=== PATIENT | male | born 1965 | race Caucasian/White ===

== ENCOUNTER → 2023-10-03 14:47 | Outpatient (REF) | payer BC, SELFPAY ==
--- NOTE | 2023-10-03 14:55 | CA_ITS ---
Transthoracic Echocardiogram Patient (Last, First, Middle): Artie Lucas, Gender: Male Date of : 1965 Age: 58 Procedure Date: 10/03/2023 Procedure Type: Transthoracic Echocardiogram Location: OP Height: 182.88 cm Weight: 81.65 kg BSA: 2.04 m2 Heart Rate: bpm BP: 110 / 70 mmHg Cd Technician: TO Referring MD: Dorita Naylor MD Symptoms: CHEST PAIN R07.9 CAD I25.10 Study Quality: Adequate ECG Rhythm: Sinus Conclusions: - The left ventricular systolic function is normal. The calculated ejection fraction is 57% by biplane method. - No obvious valvular pathology seen on this study. Findings Left Ventricle Normal left ventricular cavity size. The left ventricular systolic function is normal. The calculated ejection fraction is 57% by biplane method. There is no evidence of regional wall motion abnormalities. Diastolic function is normal for age. There is mild septal asymmetric hypertrophy. LV peak GLS 18.6%. Right Ventricle Normal right ventricular cavity size and systolic function. Atria Both atria are normal in size. Aortic Valve There is a normal trileaflet aortic valve. There is no aortic valve stenosis. There is trace (trivial) aortic valve regurgitation. Mitral Valve The mitral valve appears normal. There is no mitral valve regurgitation. There is no mitral valve stenosis. Pulmonic Valve The pulmonic valve is likely normal. Tricuspid Valve Normal tricuspid valve structure. There is trace tricuspid valve regurgitation. There is no evidence of pulmonary hypertension. Great Vessels The asc aorta is normal in size. Venous The inferior vena cava is normal in size and collapses greater than 50% with inspiration. Pericardium/Pleural There is no evidence of pericardial effusion. Prior Study Comparison No prior study available for comparison. Recommendations, Care & Conclusions No obvious valvular pathology seen on this study. Measurements 2D Linear Measurements IVSd: 1.29 0.6-0.9/0.6-1.0 cm LVIDd: 4.78 3.9-5.3/4.2-5.9 cm LVIDd Index: 2.34 2.4-3.2/2.2-3.1 cm/m2 LVIDs: 3.32 2.0-3.6 cm LVPWd: 1.02 0.7-1.1 cm LA Diam: 3.00 2.7-3.8/3.0-4.0 cm LAIDs Index: 1.47 1.5-2.3 cm/m2 LV Mass: 257.07 67-162/88-224 g LV Mass Index: 126.02 43-95/49-115 g/m2 LVOT Diam: 2.30 3.0+(-)1.3 cm 2D Systolic Function EF 4C: 55.80 >55% EF 2C: 59.00 >55% EF BiP: 57.20 >55% Mitral Valve MV Pk E: 0.62 MV PK A: 0.51 MV Decel Time: 164.00 E/A: 1.20 E'Lateral: 10.90 E'Medial: 8.05 E/E' Med: 7.70 E/E' Lat: 5.70 PHT: 48.00 MVA PHT: 4.58 Decel Dickenson: 3.76 Aortic Valve AoV Pk Can: 0.96 AoV Mn Can: 0.71 AoV VTI: 0.19 AoV Pk Grad: 4.00 Aov Mn Grad: 2.00 JENNIFER Cont.VTI: 3.44 LVOT LVOT Pk Can: 0.82 LVOT Mn Can: 0.54 LVOT VTI: 0.16 LVOT Pk Grad: 3.00 LVOT Mn Grad: 1.00 LVOT Diam: 2.30 LVOT Area: 4.15 Diastolic Function MV Pk E: 0.62 MV Pk A: 0.51 E/A: 1.20 E'Medial: 8.05 E/E' Med: 7.70 E' Laterial: 10.90 E/E' Lat: 5.70 Right Ventricle TAPSE (mm): 14.80 TVS' Can: 11.60 Tricuspid Valve TR Pk Can: 1.60 TR Pk Grad: 10.00 RA Press: 3.00 RVSP: 13.00 Great Vessels Aorta Sinus of Valsalva: 3.99 2.0-3.5 cm Ao Asc: 3.60 2.1-3.4 cm Updated in Other Vendor System with Status of Final Ambrocio Foote MD electronically signed on 10/04/2023 6:38:13 AM with status of Final
== END ==
LOC: HO.CARD 14:47
PROVIDERS: PCP Nurse Practitioner; Visit Provider Internal Medicine Cardiovascular Disease
DX: R07.9 Chest pain, unspecified (principal); I25.10 Atherosclerotic heart disease of native coronary artery without angina pectoris
CPT/HCPCS: 93306; 93356

== ENCOUNTER → 2023-10-03 14:55 | Outpatient (BNV) | payer BC, SELFPAY | PROVIDERS: PCP Nurse Practitioner; Visit Provider Internal Medicine | DX: R07.9 Chest pain, unspecified (principal) | CPT/HCPCS: 93306 ==